=== PATIENT | male | born 1995 | race Caucasian/White ===

== ENCOUNTER 2019-07-09 13:32 | Emergency (ER) | payer MEDICAID ==
[~2019-07-09] VITALS: Ht 180.3 cm; Wt 136.4 kg
[2019-07-09 13:39] VITALS: Ht 180.3 cm; Wt 136.4 kg
[2019-07-09] MEDS ORDERED: NAPROSYN500 MG PO (14:39)
[2019-07-09 14:50] VITALS: BP 131/96
== END 2019-07-09 14:50 | disposition home or self-care (01) ==
LOC: D.ER 13:32
DX: M94.0 Chondrocostal junction syndrome [Tietze] (principal)